=== PATIENT | female | born 1950 | race Two or more races ===

== ENCOUNTER 2017-09-24 16:35 | Inpatient (IN) | payer MEDICARE ==
[~2017-09-24] VITALS: Ht 162.6 cm; Wt 136.1 kg
--- NOTE | 2017-09-24 00:30 | NUR ---
Patient requesting pain medication for gen. pain, notified [place] 1 tab po given, Lovenox 40 mg SQ adm as ordered. Addendum: 09/25/17 at 2189 by CASSANDRA HARVEY RN Disregard above notes, wrong entry of time
[2017-09-24] MEDS ORDERED: IV NORMAL SALINE 500 ML BAG IV ONE (17:00)
[2017-09-24] MEDS ORDERED: ASPIRIN 325 MG TABLET PO ONE (17:00)
[2017-09-24] MEDS ORDERED: NITROGLYCERIN 0.4 MG/TAB BOTTLE SL ONE ×2 (17:00→17:01)
[2017-09-24] MEDS ORDERED: ASPIRIN 325 MG TABLET ONE (17:01)
[2017-09-24 17:08] LABS: EOSINOPHILS # (AUTO) 0.1 K/uL (0.0-0.7); EOSINOPHILS % (AUTO) 1.7 % (0.0-7.0); HEMATOCRIT 32.2 % (31.2-41.9); LYMPHOCYTES % (AUTO) 43.8 % (20.5-51.5); MEAN CORPUSCULAR HEMOGLOBIN 34.7 uug (24.7-32.8); MEAN CORPUSCULAR HGB CONC 34 g/dL (32.3-35.6); MEAN CORPUSCULAR VOLUME 102.1 fL (75.5-95.3); MONOCYTES # (AUTO) 0.3 K/uL (2.0-10.0); MONOCYTES % (AUTO) 7.5 % (0.0-11.0); NEUTROPHILS # (AUTO) 2.1 K/uL (1.8-8.9); PLATELET COUNT (AUTO) 223 K/uL (179-408); RED BLOOD CELL COUNT(AUTO) 3.16 MIL/uL (3.63-4.92); WHITE BLOOD COUNT (AUTO) 4.6 K/uL (3.8-11.8)
--- NOTE | 2017-09-24 17:10 | NUR ---
Nilam barnhartandrew in EDM - 09/24/17 at 1711 by ALEKSEY PT WAS EVALUATED BY DR ALEX. PT WAS MEDICATED ACCORDING TO ER ORDERS, PT TOLERATED TO MEDICATION WITHOUT COMPLICATIONS. PT WAS D/C TO HOME. D/C INSTRUCTIONS GIVEN TO THE PT. PT DENIES PAIN. NO SOB. NO N/V.
--- NOTE | 2017-09-24 17:15 | NUR ---
PT IS IN ROOM #1B. DR ALEX EVALUATED THE PT.
[2017-09-24 17:18] LABS: CREATININE 0.8 mg/dL (0.6-1.3); POTASSIUM 3.7 mmol/L (3.5-5.1)
[2017-09-24] MEDS ORDERED: ONDANSETRON IV *ER 4 MG/2 ML VIAL IV ONE (17:30)
[2017-09-24 17:33] LABS: BILIRUBIN,DIRECT 0.1 mg/dL (0.0-0.2); BILIRUBIN,TOTAL 0.2 mg/dL (0.2-1.0); TOTAL PROTEIN, SERUM 6.7 g/dL (6.4-8.2)
[2017-09-24] MEDS ORDERED: ONDANSETRON 4 MG/2 ML VIAL ONE (17:51)
--- NOTE | 2017-09-24 19:09 | NUR ---
REPORT TAKEN FROM DAY SHIFT RN. ASSUMING PT CARE AT THIS TIME.
--- NOTE | 2017-09-24 19:53 | NUR ---
PT AMBULATED TO AND FROM BEDSIDE COMMODE W/ STEADY GAIT. NO DISTRESS NOTED.
[2017-09-24] MEDS ORDERED: ACETAMINOPHEN 325 MG TABLET ONE (20:24)
[2017-09-24] MEDS ORDERED: ACETAMINOPHEN 325 MG TABLET PO ONE (20:30)
--- NOTE | 2017-09-24 21:07 | NUR ---
[facility] CALLED FOR PANEL. WAS TOLD MICHELLE MAYS WILL CALL BACK.
[2017-09-24] MEDS ORDERED: MORPHINE SULFATE 2 MG/1 ML DISP.SYRIN IV PRN (21:45)
[2017-09-24] MEDS ORDERED: ZOLPIDEM 5 MG TABLET PO PRN (21:45)
[2017-09-24] MEDS ORDERED: DOCUSATE SODIUM 100 MG CAPSULE PO PRN (21:45)
[2017-09-24] MEDS ORDERED: ENOXAPARIN SODIUM 60 MG/0.6 ML DISP.SYRIN SQ SCH (21:45)
[2017-09-24] MEDS ORDERED: NITROGLYCERIN 0.4 MG/TAB BOTTLE SL PRN (21:45)
--- NOTE | 2017-09-24 21:47 | NUR ---
REPORT GIVEN TO CIERA ROBLERO.
--- NOTE | 2017-09-24 21:52 | NUR ---
Pt. admitted to TELE, under care of Dr. MICHELLE MAYS [place]ongs List completed
[2017-09-24 22:00] VITALS: BP 149/75
--- NOTE | 2017-09-24 22:30 | NUR ---
In from ER via gurmonon, 66 y/o female obese patient admitted to Telemetry Dx. Chest Pain. cable technician applied- patient is Sinus rhythm w/ PACs. No SOB noted denies any chest pain w/ vital signs stable. On cardiac diet, late dinner provided. Patient tolerated. Noted infiltrated IV line on right AC.
[2017-09-24] MEDS: HYDROCODONE/APAP 10-325 MG TABLET PO PRN (23:33)
[2017-09-24] MEDS: ONDANSETRON 4 MG/2 ML VIAL IV PRN (23:33)
[2017-09-25] VITALS: BP 108/54
[2017-09-25] MEDS ORDERED: ENOXAPARIN SODIUM 40 MG/0.4 ML DISP.SYRIN SQ ONE
--- NOTE | 2017-09-25 00:30 | NUR ---
Patient requesting pain medication for gen. pain, notified [place] 1 tab po given, Lovenox 40 mg SQ adm as ordered.
[2017-09-25] MEDS ORDERED: INSU100V7 SQ (03:46)
[2017-09-25] MEDS ORDERED: OXYC30TA2 PO (03:46)
[2017-09-25] MEDS ORDERED: INSU100V SQ (03:46)
[2017-09-25] MEDS ORDERED: SIMV40TA5 PO (03:46)
[2017-09-25] MEDS ORDERED: PROP20TA7 PO (03:46)
[2017-09-25] MEDS ORDERED: CLOP75TA15 PO (03:46)
[2017-09-25] MEDS ORDERED: IPRA12.9 INH (03:46)
[2017-09-25] MEDS ORDERED: AMLO1CAP PO (03:46)
[2017-09-25] MEDS ORDERED: OMEG100037 PO (03:52)
--- NOTE | 2017-09-25 03:53 | NUR ---
Awake assisted to the bathroom & patient voided. No SOB noted. Patient provided list of home medications & requesting to undergo urinalysis test, she think she has urinary tract infection. Paged [facility] MD pallet stone positioner for orders. Started new IV line on her left hand w/ [id number]. Tele Sinus rhythm w/ PACs .
[2017-09-25 04:00] VITALS: BP 141/79
--- NOTE | 2017-09-25 05:30 | NUR ---
Dr. Benjamin called back, okayed to do accu check AC & HS w/ mild insulin sliding scale coverage, & home meds to reconcile in AM. Patient resting comfortably. Tele sinus rhythm.
[2017-09-25] MEDS ORDERED: DEXTROSE 50% 50 ML DISP.SYRIN IV PRN (06:45)
[2017-09-25] MEDS: BLOOD SUGAR DIAGNOSTIC 1 EACH STRIP VI SCH ×4 (06:58→21:17)
--- NOTE | 2017-09-25 07:30 | NUR ---
RECEIVED A 66 Y/O FEMALE PT, CONSCIOUS ORIENTEDX3, BREATHING VIA ROOM AIR. PT LYING IN BED, DENIES ANY CHEST PAIN, HAS A LT PERIPHERAL LINE G22 ON LT HAND
[2017-09-25 08:00] VITALS: BP 155/69
[2017-09-25] MEDS ORDERED: MORPHINE SULFATE 4 MG/1 ML DISP.SYRIN IV PRN (08:21)
[2017-09-25] MEDS: ASPIRIN 81 MG TAB.CHEW PO SCH (08:46)
[2017-09-25] MEDS: ENOXAPARIN SODIUM 40 MG/0.4 ML DISP.SYRIN SQ SCH (08:46)
[2017-09-25] MEDS: INSULIN REGULAR, HUMAN 300 UNIT/3 ML VIAL SQ PRN ×3 (12:50→21:19)
[2017-09-25 13:00] VITALS: BP 164/77
[2017-09-25 17:00] VITALS: BP 164/79
[2017-09-25] MEDS ORDERED: Medication Not On Formulary EA (Amlodipine Besylate/Benazepril (Lotrel 10-20 Mg Capsule) PO SCH (17:00)
--- NOTE | 2017-09-25 17:00 | NUR ---
pt sent on bed to radiology unit for brain ct scan
--- NOTE | 2017-09-25 17:30 | NUR ---
pt back from ct scan and complains of pain , narco po given
[2017-09-25] MEDS: HYDROCODONE/APAP 10-325 MG TABLET PO PRN (17:34)
[2017-09-25] MEDS: PROPRANOLOL HCL 20 MG TABLET PO SCH (18:00)
--- NOTE | 2017-09-25 18:08 | NUR ---
pt received dinner tolerated well , no new complaints.
[2017-09-25] MEDS: AMLODIPINE 10 MG TABLET PO SCH (18:35)
[2017-09-25] MEDS: BENAZEPRIL HCL 20 MG TABLET PO SCH (18:36)
[2017-09-25 19:00] VITALS: BP 154/72
[2017-09-25] MEDS ORDERED: ATORVASTATIN 20 MG TABLET PO SCH (21:00)
--- NOTE | 2017-09-25 22:00 | NUR ---
Awake watching TV. No SOB patient denies chest pain. Tele sinus rhythm. Medicated for pain PRN.
--- NOTE | 2017-09-26 | NUR ---
Sleeping comfortably, no further change noted.
[2017-09-26 04:00] VITALS: BP 173/88
[2017-09-26] MEDS: BLOOD SUGAR DIAGNOSTIC 1 EACH STRIP VI SCH ×4 (06:52→20:49)
[2017-09-26] MEDS: PROPRANOLOL HCL 20 MG TABLET PO SCH (08:32)
[2017-09-26] MEDS: ASPIRIN 81 MG TAB.CHEW PO SCH (08:32)
[2017-09-26] MEDS: BENAZEPRIL HCL 20 MG TABLET PO SCH (08:33)
[2017-09-26] MEDS: AMLODIPINE 10 MG TABLET PO SCH (08:33)
[2017-09-26] MEDS: CARVEDILOL 6.25 MG TABLET PO SCH ×2 (08:33→17:41)
[2017-09-26] MEDS: INSULIN REGULAR, HUMAN 300 UNIT/3 ML VIAL SQ PRN ×4 (08:36→20:53)
[2017-09-26] MEDS: ENOXAPARIN SODIUM 40 MG/0.4 ML DISP.SYRIN SQ SCH (08:43)
[2017-09-26] MEDS ORDERED: SIMVASTATIN 40 MG TABLET PO SCH ×2 (09:00→21:00)
[2017-09-26] MEDS ORDERED: CLOPIDOGREL 75 MG TABLET PO SCH ×2 (09:00)
[2017-09-26] MEDS ORDERED: FURO-152 PO (10:59)
[2017-09-26 11:23] VITALS: BP 127/60
[2017-09-26] MEDS: HYDROCODONE/APAP 10-325 MG TABLET PO PRN (14:39)
[2017-09-26 15:03] VITALS: BP 109/50
[2017-09-26] MEDS: ONDANSETRON 4 MG/2 ML VIAL IV PRN (16:40)
[2017-09-26 17:41] VITALS: BP 139/59
--- NOTE | 2017-09-26 19:10 | NUR ---
RECEIVED PT AWAKE, ALERT, ORIENTEDX4. PT SHOWS NO SIGNS OF DISTRESS.DISCHARGED INSTRUCTION DONE. PT VERBALIZED UNDERSTANDING. PT JUST WAITING FOR HER DAUGHTER TO PICK HER UP. SAFETY AND COMFORT PROVIDED,. WILL CONTINUE TO MONITOR.
[2017-09-26] MEDS ORDERED: ATORVASTATIN 20 MG TABLET PO SCH (21:00)
--- NOTE | 2017-09-26 23:30 | NUR ---
PT DISCHARGED FROM FLOOR AT 2330. PT ASSISTED TO HER OWN CAR VIA WHEELCHAIR. DISCHARGED INSTRUCTION AND BELONGING LIST DONE. PT STABLE AND NO ACUTE DISTRESS. PT ID BAND AND IV ACCESS REMOVED.
== END 2017-09-26 23:39 | disposition home or self-care (01) | DRG 303 ==
LOC: ER 16:37 → TELE 21:28 → MED 09-25 22:02
PROVIDERS: ADMIT Nurse Practitioner Acute Care; ATTEND Nurse Practitioner Acute Care
DX: I25.119 Atherosclerotic heart disease of native coronary artery with unspecified angina pectoris (principal); Z68.43 Body mass index [BMI] 50.0-59.9, adult; E44.1 Mild protein-calorie malnutrition; J98.11 Atelectasis; I10 Essential (primary) hypertension; R13.10 Dysphagia, unspecified; E78.5 Hyperlipidemia, unspecified; E66.01 Morbid (severe) obesity due to excess calories; Z71.3 Dietary counseling and surveillance; G47.33 Obstructive sleep apnea (adult) (pediatric); I25.2 Old myocardial infarction; D75.89 Other specified diseases of blood and blood-forming organs; M16.11 Unilateral primary osteoarthritis, right hip; Z86.73 Personal history of transient ischemic attack (TIA), and cerebral infarction without residual deficits; M79.7 Fibromyalgia; Z87.311 Personal history of (healed) other pathological fracture; J45.909 Unspecified asthma, uncomplicated; Z90.49 Acquired absence of other specified parts of digestive tract; E11.9 Type 2 diabetes mellitus without complications; M25.551 Pain in right hip
CPT/HCPCS: 36415; 70030-TC; 70450; 71045; 83921; 85025; 85730; 93005; 93307; A4663; J1650; J1815; J2405; J7030